=== PATIENT | male | born 1950 | race Caucasian/White ===

== ENCOUNTER 2017-05-28 00:45 | Emergency (ER) | payer OTHER ==
[~2017-05-28] VITALS: Ht 180.3 cm; Wt 89.4 kg
[~2017-05-28 00:45] MED LIST: ACETAMINOPHEN325 MG PO; APAP650 PO; ASPIRIN EC325 M1 PO; GLUCOPHAGE1000 MG PO; HYDROCHLOROTH12.5 MG PO; LANTUS SUBQ; LOPRESSOR50 PO; LOVASTATIN 20 M20 MG PO; MIRALAX17 GM PO; NORCO 5-325 TA1 EACH PO; NOVOLIN 70100 UNIT/5; NOVOLOG100 UNIT/1 SUBQ; ONDANSETRON HCL4 M2 PO; PEPCID40 MG PO; PHENERGAN 25 MG25 M1 PO
[2017-05-28 01:15] LABS: ABSOLUTE NEUTROPHILS 15.4 thou/uL (1.4-8.2); BASOPHILS 0.7 % (0.0-2.0); EOSINOPHILS 0.1 % (0.0-3.0); HEMATOCRIT 56.1 % (42.0-52.0); HEMOGLOBIN 18.9 gm/dL (14.0-18.0); LYMPHOCYTES 14.3 % (24.0-44.0); MCH 29.8 pg (26.0-34.0); MCHC 33.7 g/dL (28.0-37.0); MCV 88.4 fL (80.0-100.0); MONOCYTES 6.5 % (1.0-8.0); PLATELET COUNT 223 thou/uL (150-400); POLYS 78.4 % (36.0-66.0); RBC 6.34 mil/uL (4.50-6.00); RDW 14.2 % (10.5-14.5); WBC 19.6 thou/uL (4.0-11.0)
[2017-05-28 01:24] LABS: CALCIUM 9.4 mg/dL (8.5-10.1); POTASSIUM 4.4 mmol/L (3.5-5.1)
[2017-05-28 01:26] LABS: URINE BILIRUBIN NEGATIVE (Negative); URINE BLOOD 2+ (Negative); URINE COLOR YELLOW; URINE GLUCOSE-RANDOM* 3+ (Negative); URINE KETONES 2+ (Negative); URINE LEUKOCYTES-REFLEX NEGATIVE (Negative); URINE PROTEIN (DIPSTICK) 1+ (Negative); URINE UROBILINOGEN 0.2 E.U./dl (0.2-1.0)
[2017-05-28 01:29] LABS: ALBUMIN 3.8 g/dL (3.4-5.0); TOTAL BILIRUBIN 0.8 mg/dL (<0.1-1.0); TOTAL PROTEIN 7.8 g/dL (6.4-8.2)
[2017-05-28 01:48] LABS: MANUAL DIFF NO
[2017-05-28 02:00] LABS: CASTS None Seen /LPF (None Seen); CRYSTALS None Seen /LPF (None Seen); SQUAMOUS None Seen /LPF (0-3); URINE RBC 3-10 Few /HPF (0-2)
[2017-05-28 02:01] LABS: URINE WBC-REFLEX None Seen /HPF (0-5)
[2017-05-28] MEDS ORDERED: REGLAN 10 MG TA10 MG PO (03:06)
[2017-05-28] MEDS ORDERED: DIFLUCAN200 MG PO (03:06)
== END 2017-05-28 03:30 | disposition home or self-care (01) ==
LOC: ER 00:45
PROVIDERS: Emergency Medicine
DX: E11.43 Type 2 diabetes mellitus with diabetic autonomic (poly)neuropathy (principal); K31.84 Gastroparesis; E11.65 Type 2 diabetes mellitus with hyperglycemia; B37.9 Candidiasis, unspecified; I10 Essential (primary) hypertension; I25.2 Old myocardial infarction; E78.5 Hyperlipidemia, unspecified; F17.210 Nicotine dependence, cigarettes, uncomplicated; F12.10 Cannabis abuse, uncomplicated; Z91.041 Radiographic dye allergy status; Z95.5 Presence of coronary angioplasty implant and graft; Z86.73 Personal history of transient ischemic attack (TIA), and cerebral infarction without residual deficits; Z79.4 Long term (current) use of insulin

== ENCOUNTER 2017-08-11 14:15 | Emergency (ER) | payer OTHER ==
[~2017-08-11] VITALS: Ht 180.3 cm; Wt 90.7 kg
--- NOTE | ~2017-08-11 | EKG ---
[address] [employer] [address] ELECTROCARDIOGRAM REPORT Name: HEMALCOSMO VIVAR Room #: REG BRITTNEE Chen#: [id number] Admission: 08/11/17 Attend Phys: Discharge: Date of : 46 Report #: [id number] THIS REPORT FOR: //name// [facility] ED Test Date: 2017-08-11 Test Time: 14:55:44 Pat Name: COSMO RECIO Department: Room: Gender: Public Relations Representative: : 1950 Requested By: Yana Hendrickson Order Number: [id number] MD: Scott Mcgee Measurements Intervals [place] Rate: 115 P: 69 MO: 137 QRS: 110 QRSD: 123 T: -2 QT: 350 QTc: 484 Interpretive Statements Sinus tachycardia Probable left atrial enlargement RBBB and LPFB Electronically Signed On 08-11-2017 16:39:24 CDT by Scott Mcgee [email or web address] <ELECTRONICALLY SIGNED> By: Scott Mcgee MD 08/11/17 1639 1455 1455 Scott Mcgee MD /EPI
[~2017-08-11 14:15] MED LIST changes: +DIFLUCAN200 MG PO; +REGLAN 10 MG TA10 MG PO
[2017-08-11 15:04] LABS: ABSOLUTE NEUTROPHILS 13.2 thou/uL (1.4-8.2); BASOPHILS 0.7 % (0.0-2.0); EOSINOPHILS 0.3 % (0.0-3.0); HEMOGLOBIN 19.2 gm/dL (14.0-18.0); LYMPHOCYTES 19.6 % (24.0-44.0); MCH 29.5 pg (26.0-34.0); MCHC 33.6 g/dL (28.0-37.0); MCV 87.6 fL (80.0-100.0); MONOCYTES 6.9 % (1.0-8.0); PLATELET COUNT 250 thou/uL (150-400); POLYS 72.5 % (36.0-66.0); RDW 14.5 % (10.5-14.5); WBC 18.2 thou/uL (4.0-11.0)
[2017-08-11 15:06] LABS: MANUAL DIFF NO
[2017-08-11 15:10] LABS: ICTOTEST (BILI CONFIRMATORY) Negative (Negative); URINE BILIRUBIN 1+ (Negative); URINE BLOOD 2+ (Negative); URINE COLOR YELLOW; URINE GLUCOSE-RANDOM* 2+ (Negative); URINE KETONES 3+ (Negative); URINE NITRITE NEGATIVE (Negative); URINE PROTEIN (DIPSTICK) 2+ (Negative); URINE SPECIFIC GRAVITY >= 1.030 (1.003-1.035); URINE UROBILINOGEN 0.2 E.U./dl (0.2-1.0)
[2017-08-11 15:10] LABS: ANION GAP 15 mmol/L (7-16); BUN 17 mg/dL (7-18); CALCIUM 9.7 mg/dL (8.5-10.1); CHLORIDE 93 mmol/L (98-107); CO2 23 mmol/L (21-32); CREATININE 0.8 mg/dL (0.7-1.3); GLUCOSE 311 mg/dL (74-106); POTASSIUM 4.7 mmol/L (3.5-5.1); SODIUM 131 mmol/L (136-145)
[2017-08-11 15:19] LABS: ALBUMIN 3.8 g/dL (3.4-5.0); ALKALINE PHOSPHATASE 100 U/L (46-116); DIRECT BILIRUBIN 0.2 mg/dL (<0.1-0.3); SGOT 25 U/L (15-37); SGPT 22 U/L (30-65); TOTAL BILIRUBIN 1.3 mg/dL (<0.1-1.0); TOTAL PROTEIN 8.3 g/dL (6.4-8.2); TROPONIN-I < 0.04 ng/mL (<0.04-0.07)
[2017-08-11 15:28] LABS: BACTERIA 1-9 Few /HPF (None Seen); CASTS None Seen /LPF (None Seen); CRYSTALS None Seen /LPF (None Seen); SQUAMOUS None Seen /LPF (0-3); URINE RBC 0-2 Rare /HPF (0-2); URINE WBC None Seen /HPF (0-5)
[2017-08-11] MEDS ORDERED: PHENERGAN 25 MG25 M1 PO (16:34)
[2017-08-11] MEDS ORDERED: ZOFRAN ODT4 MG PO (16:34)
[2017-08-11] MEDS ORDERED: PROMS25 WY RECTAL (16:34)
== END 2017-08-11 17:55 | disposition home or self-care (01) ==
LOC: ER 14:15
PROVIDERS: Emergency Medicine
DX: I10 Essential (primary) hypertension (principal); D72.829 Elevated white blood cell count, unspecified; E11.9 Type 2 diabetes mellitus without complications; R82.4 Acetonuria; I25.2 Old myocardial infarction; E78.5 Hyperlipidemia, unspecified; F17.210 Nicotine dependence, cigarettes, uncomplicated; Z86.73 Personal history of transient ischemic attack (TIA), and cerebral infarction without residual deficits; Z91.041 Radiographic dye allergy status